=== PATIENT | male | born 1945 | race Caucasian/White ===

== ENCOUNTER 2020-11-05 09:26 | Outpatient (CLI) | payer MEDICARE ==
[2020-11-05] MEDS ORDERED: PROSTATE MED PO (10:52)
[2020-11-05 11:05] LABS: INTERNATIONAL NORMALIZED RATIO 0.96 (0.93-1.1); PROTHROMBIN TIME 10.3 Seconds (9.6-11.5)
== END 2020-11-05 23:59 | disposition home or self-care (01) ==
LOC: STAR 09:26
PROVIDERS: ATTEND Orthopaedic Surgery
DX: Z01.818 Encounter for other preprocedural examination (principal); M17.11 Unilateral primary osteoarthritis, right knee
CPT/HCPCS: 36415; 85610; 85730; 87806; 93005; G0475

== ENCOUNTER 2020-11-16 05:38 | Observation (INO) | payer MEDICARE ==
[~2020-11-16] VITALS: Ht 165.1 cm; Wt 78.4 kg
[~2020-11-16 05:38] MED LIST: PROSTATE MED PO
[2020-11-16] MEDS ORDERED: FINA5TAB4 PO (06:23)
[2020-11-16 06:24] VITALS: BP 145/77
[2020-11-16] MEDS ORDERED: CHLORHEXIDINE 15 ML UDC ONE (06:28)
[2020-11-16] MEDS ORDERED: LACTATED RINGERS 1,000 ML IV SCH (06:30)
[2020-11-16] MEDS ORDERED: CHLORHEXIDINE 15 ML UDC PO ONE (06:30)
[2020-11-16] MEDS ORDERED: MIDAZOLAM 1 MG/ML, 2ML ONE (06:33)
[2020-11-16] MEDS ORDERED: FENTANYL PF 250 MCG/5ML ONE (06:33)
[2020-11-16] MEDS ORDERED: SODIUM CHLORIDE 0.9% 50 ML ONE (06:36)
[2020-11-16] MEDS ORDERED: TRANEXAMIC ACID 100 MG/ML, 10ML ONE ×5 (06:36→07:02)
[2020-11-16] MEDS ORDERED: EPINEPHRINE 1 MG/ML, 1ML ONE (06:36)
[2020-11-16] MEDS ORDERED: VANCOMYCIN 1,000 MG ONE (06:36)
[2020-11-16] MEDS ORDERED: ROPIvacaine/PF 0.2%, 20 ML ONE (06:36)
[2020-11-16] MEDS ORDERED: KETOROLAC 60 MG/2 ML ONE (06:36)
[2020-11-16] MEDS ORDERED: POLYETHYLENE GLYCOL 17 GM PACKET PO PRN (07:00)
[2020-11-16] MEDS ORDERED: DIPHENHYDRAMINE 50 MG/ML, 1ML IVPush PRN (07:00)
[2020-11-16] MEDS ORDERED: ACETAMINOPHEN 650 MG/20.3 ML UDC PO PRN (07:00)
[2020-11-16] MEDS ORDERED: KETOROLAC 30 MG/1 ML IV SCH (07:00)
[2020-11-16] MEDS ORDERED: PSYLLIUM PACKET PO PRN (07:00)
[2020-11-16] MEDS ORDERED: D5%-0.45NACL+KCL 20MEQ 1,000 ML IV SCH (07:00)
[2020-11-16] MEDS ORDERED: ONDANSETRON 2MG/ML, 2ML IVPush PRN ×2 (07:00→09:00)
[2020-11-16] MEDS ORDERED: DIPHENHYDRAMINE 50 MG CAPSULE PO PRN (07:00)
[2020-11-16] MEDS ORDERED: HYDROmorphone 1 MG/ML, 1ML INJ IVPush PRN ×2 (07:00→09:00)
[2020-11-16] MEDS ORDERED: ONDANSETRON 4 MG TABLET PO PRN (07:00)
[2020-11-16] MEDS ORDERED: OXYcodone IR 5MG TABLET PO PRN (07:00)
[2020-11-16] MEDS ORDERED: MAGNESIUM HYDROXIDE 8%, 30ML UDC PO PRN (07:00)
[2020-11-16] MEDS ORDERED: METOCLOPRAMIDE 5 MG/ML, 2ML IVPush PRN (07:00)
[2020-11-16] MEDS ORDERED: HYDROmorphone 1 MG/ML, 1ML INJ ONE ×2 (07:37→09:04)
[2020-11-16] MEDS ORDERED: FENTANYL PF 100 MCG/2ML ONE (08:32)
[2020-11-16] MEDS: FENTANYL PF 100 MCG/2ML IV PRN ×3 (08:35→08:50)
[2020-11-16] MEDS ORDERED: KETOROLAC 30 MG/1 ML ONE (08:45)
[2020-11-16] MEDS ORDERED: OXYcodone 5 MG/5 ML ORAL.SOL UDC ONE (08:45)
[2020-11-16] MEDS ORDERED: TRANEXAMIC ACID 1,000 MG in SODIUM CHLORIDE 0.9% 100 ML IVPB ONE (08:55)
[2020-11-16] MEDS ORDERED: OXYcodone 5 MG/5 ML ORAL.SOL UDC PO PRN (09:00)
[2020-11-16] MEDS ORDERED: PROMETHAZINE 25 MG/ML, 1ML IVPush PRN (09:00)
[2020-11-16] MEDS ORDERED: MEPERIDINE/PF 25MG/0.5ML IVPush PRN (09:00)
[2020-11-16] MEDS ORDERED: EPHEDRINE 50 MG/ML, 1ML IVPush PRN (09:00)
[2020-11-16] MEDS ORDERED: hydrALAzine 20 MG/ML, 1ML IV PRN (09:00)
[2020-11-16] MEDS ORDERED: LORazepam 2 MG/ML, 1ML IVPush PRN (09:00)
[2020-11-16] MEDS ORDERED: LABETALOL 5MG/ML, 20ML IV PRN (09:00)
[2020-11-16] MEDS ORDERED: DOCUSATE 100 MG CAPSULE PO SCH (09:00)
[2020-11-16] MEDS ORDERED: ACETAMINOPHEN 325 MG TABLET PO PRN (09:00)
[2020-11-16] MEDS ORDERED: METHOCARBAMOL 1,000 MG in DEXTROSE 5% 100 ML IV PRN (09:00)
[2020-11-16] MEDS ORDERED: TAMSULOSIN 0.4 MG CAP.ER.24H PO SCH (12:00)
[2020-11-16] MEDS ORDERED: DEXAMETHASONE 4 MG/ML, 1ML ONE (12:04)
[2020-11-16] MEDS ORDERED: GLYCOPYRROLATE 0.2MG/1ML, 5ML ONE (12:04)
[2020-11-16] MEDS ORDERED: CEFAZOLIN 1,000 MG ONE (12:04)
[2020-11-16] MEDS ORDERED: NEOSTIGMINE 1 MG/ML, 10ML ONE (12:04)
[2020-11-16] MEDS ORDERED: SUCCINYLCHOLINE 20 MG/ML, 10ML ONE (12:04)
[2020-11-16] MEDS ORDERED: PROPOFOL 10 MG/ML, 20ML ONE (12:04)
[2020-11-16] MEDS ORDERED: ROCURONIUM 10MG/ML,5ML ONE (12:04)
[2020-11-16] MEDS ORDERED: ONDANSETRON 2MG/ML, 2ML ONE (12:04)
[2020-11-16] MEDS ORDERED: CEFAZOLIN PMX 1GM/50ML 50 ML IVPB SCH (12:56)
[2020-11-16] MEDS ORDERED: ASPIRIN 81 MG TABLET EC PO SCH (18:00)
== END 2020-11-16 14:51 | disposition home or self-care (01) ==
LOC: OUT 05:38 → ORIP 06:44
PROVIDERS: ADMIT Orthopaedic Surgery; ATTEND Orthopaedic Surgery
DX: M17.0 Bilateral primary osteoarthritis of knee (principal); Z20.822 Contact with and (suspected) exposure to COVID-19; M71.21 Synovial cyst of popliteal space [Baker], right knee; K21.9 Gastro-esophageal reflux disease without esophagitis; M06.9 Rheumatoid arthritis, unspecified; Z87.891 Personal history of nicotine dependence; Z79.899 Other long term (current) drug therapy
CPT/HCPCS: 27447; 73560; 87635; 97162; 97165; C1776; G0378; J0171; J0330; J0690; J1100; J1170; J1885; J2250; J2405; J2704; J2710; J2795; J2800; J3010; J3370; J7120

== ENCOUNTER 2021-03-11 09:56 | Outpatient (CLI) | payer MEDICARE ==
[~2021-03-11 09:56] MED LIST changes: +FINA5TAB4 PO
[2021-03-11] MEDS ORDERED: VITA200C7 PO (10:58)
[2021-03-11] MEDS ORDERED: MECO10005 PO (10:58)
[2021-03-11] MEDS ORDERED: TURM1POW PO (10:58)
[2021-03-11] MEDS ORDERED: MELO15TA24 PO (10:58)
[2021-03-11] MEDS ORDERED: VITA0.4T18 PO (10:58)
[2021-03-11] MEDS ORDERED: MULT-449 PO (10:58)
[2021-03-11] MEDS ORDERED: PANT40TA3 PO (10:58)
[2021-03-11] MEDS ORDERED: CHOL200052 PO (10:58)
[2021-03-11] MEDS ORDERED: CALC500T14 PO (10:58)
[2021-03-11] MEDS ORDERED: FLAX10004 PO (10:58)
== END 2021-03-11 23:59 | disposition home or self-care (01) ==
LOC: STAR 09:56
PROVIDERS: ATTEND Orthopaedic Surgery
DX: Z01.818 Encounter for other preprocedural examination (principal); M17.12 Unilateral primary osteoarthritis, left knee
CPT/HCPCS: 87081; 87147; 93005

== ENCOUNTER 2021-03-22 05:40 | Day surgery (SDC) | payer MEDICARE ==
[~2021-03-22] VITALS: Ht 165.1 cm; Wt 78.8 kg
[~2021-03-22 05:40] MED LIST changes: +CALC500T14 PO; +CHOL200052 PO; +FLAX10004 PO; +MECO10005 PO; +MELO15TA24 PO; +MULT-449 PO; +PANT40TA3 PO; +TURM1POW PO; +VITA0.4T18 PO; +VITA200C7 PO
[2021-03-22 05:57] VITALS: BP 134/78
[2021-03-22] MEDS ORDERED: CHLORHEXIDINE 15 ML UDC PO ONE (06:00)
[2021-03-22] MEDS ORDERED: LACTATED RINGERS 1,000 ML IV SCH (06:00)
[2021-03-22] MEDS ORDERED: FENTANYL PF 250 MCG/5ML ONE (06:01)
[2021-03-22] MEDS ORDERED: PHENYLEPHRINE 10 MG/ML ONE (06:05)
[2021-03-22] MEDS ORDERED: GLYCOPYRROLATE 0.2MG/1ML, 5ML ONE (06:07)
[2021-03-22] MEDS ORDERED: CEFAZOLIN 1,000 MG ONE (06:07)
[2021-03-22] MEDS ORDERED: ROCURONIUM 10MG/ML,5ML ONE (06:07)
[2021-03-22] MEDS ORDERED: PROPOFOL 10 MG/ML, 20ML ONE (06:07)
[2021-03-22] MEDS ORDERED: NEOSTIGMINE 1 MG/ML, 10ML ONE (06:07)
[2021-03-22] MEDS ORDERED: BUPIVACAINE/PF 0.25% ONE (06:07)
[2021-03-22] MEDS ORDERED: KETOROLAC 60 MG/2 ML ONE (06:11)
[2021-03-22] MEDS ORDERED: TRANEXAMIC ACID 100 MG/ML, 10ML ONE ×2 (06:11)
[2021-03-22] MEDS ORDERED: ROPIvacaine/PF 0.2%, 20 ML ONE (06:12)
[2021-03-22] MEDS ORDERED: SODIUM CHLORIDE 0.9% 50 ML ONE (06:12)
[2021-03-22] MEDS ORDERED: VANCOMYCIN 1,000 MG ONE (06:12)
[2021-03-22] MEDS ORDERED: POTASSIUM CHLORIDE 20 MEQ in D5%-0.45% NACL 1,000 ML IV SCH (07:00)
[2021-03-22] MEDS ORDERED: OXYcodone IR 5MG TABLET PO PRN (07:00)
[2021-03-22] MEDS ORDERED: DIPHENHYDRAMINE 50 MG CAPSULE PO PRN (07:00)
[2021-03-22] MEDS ORDERED: ONDANSETRON 2MG/ML, 2ML IVPush PRN (07:00)
[2021-03-22] MEDS ORDERED: HYDROmorphone 1 MG/ML, 1ML INJ IVPush PRN ×2 (07:00→08:00)
[2021-03-22] MEDS ORDERED: METOCLOPRAMIDE 5 MG/ML, 2ML IVPush PRN (07:00)
[2021-03-22] MEDS ORDERED: PROMETHAZINE 25 MG/ML, 1ML IM PRN (07:00)
[2021-03-22] MEDS ORDERED: PSYLLIUM PACKET PO PRN (07:00)
[2021-03-22] MEDS ORDERED: DIPHENHYDRAMINE 50 MG/ML, 1ML IVPush PRN ×2 (07:00→08:00)
[2021-03-22] MEDS ORDERED: MAGNESIUM HYDROXIDE 8%, 30ML UDC PO PRN (07:00)
[2021-03-22] MEDS ORDERED: ACETAMINOPHEN 650 MG/20.3 ML UDC PO PRN (07:00)
[2021-03-22] MEDS ORDERED: ONDANSETRON 4 MG TABLET PO PRN (07:00)
[2021-03-22] MEDS ORDERED: POLYETHYLENE GLYCOL 17 GM PACKET PO PRN (07:00)
[2021-03-22] MEDS ORDERED: SENNA/DOCUSATE TABLET PO PRN (07:00)
[2021-03-22] MEDS ORDERED: EPINEPHRINE 1 MG/ML, 1ML INFIL ONE (07:22)
[2021-03-22] MEDS ORDERED: OXYcodone 5 MG/5 ML ORAL.SOL UDC PO PRN (08:00)
[2021-03-22] MEDS ORDERED: PROMETHAZINE 25 MG/ML, 1ML IVPush PRN (08:00)
[2021-03-22] MEDS ORDERED: LABETALOL 5MG/ML, 20ML IV PRN (08:00)
[2021-03-22] MEDS ORDERED: MEPERIDINE/PF 25MG/0.5ML IVPush PRN (08:00)
[2021-03-22] MEDS ORDERED: ALBUTEROL SULFATE 2.5 MG/3 ML NPPB PRN (08:00)
[2021-03-22] MEDS ORDERED: FENTANYL PF 100 MCG/2ML ONE (08:21)
[2021-03-22] MEDS ORDERED: MEPERIDINE/PF 25MG/ML,1ML ONE (08:21)
[2021-03-22] MEDS: FENTANYL PF 100 MCG/2ML IV PRN ×2 (08:23→08:38)
[2021-03-22] MEDS ORDERED: OXYcodone 5 MG/5 ML ORAL.SOL UDC ONE (08:40)
[2021-03-22] MEDS ORDERED: ACETAMINOPHEN 650 MG/20.3 ML UDC ONE (08:40)
[2021-03-22] MEDS ORDERED: DOCUSATE 100 MG CAPSULE PO SCH (09:00)
[2021-03-22] MEDS ORDERED: TAMSULOSIN 0.4 MG CAP.ER.24H PO SCH (09:00)
[2021-03-22] MEDS ORDERED: OXYcodone IR 5MG TABLET ONE (11:31)
[2021-03-22] MEDS ORDERED: ASPIRIN 81 MG TABLET EC PO SCH (18:00)
[2021-03-22] MEDS ORDERED: CEFAZOLIN PMX 1GM/50ML 50 ML IVPB SCH (18:39)
[2021-03-22] MEDS ORDERED: KETOROLAC 30 MG/1 ML IV SCH (18:45)
[2021-03-23] MEDS ORDERED: DEXAMETHASONE 4 MG/ML, 1ML IVPush ONE (06:00)
== END 2021-03-22 12:35 | disposition home or self-care (01) ==
LOC: OUT 05:40 → ORIP 08:10 → UNDOADMOB 08:10 → ORIP 10:28
PROVIDERS: ATTEND Orthopaedic Surgery
DX: M17.12 Unilateral primary osteoarthritis, left knee (principal); M25.762 Osteophyte, left knee; M71.22 Synovial cyst of popliteal space [Baker], left knee; N40.0 Benign prostatic hyperplasia without lower urinary tract symptoms; Z79.1 Long term (current) use of non-steroidal anti-inflammatories (NSAID); Z79.82 Long term (current) use of aspirin; Z79.891 Long term (current) use of opiate analgesic; Z79.899 Other long term (current) drug therapy; Z96.651 Presence of right artificial knee joint
CPT/HCPCS: 27447; 64447; 73560; 97163; C1776; J0171; J0690; J1885; J2370; J2704; J2710; J2795; J3010; J3370